=== PATIENT | female | born 1995 | race Caucasian/White ===

== ENCOUNTER → 2020-06-01 | Outpatient (CLI) | payer BC ==
--- NOTE | 2020-06-01 12:22 | RAD ---
CT LUMBAR SPINE WO Date: 06/01/2020 11:56 AM Indication: FALL, SEVERE LOW BACK PAIN Comparison: None. Technique: Helical CT images of the lumbar spine were obtained without contrast. Coronal and sagitta l reformatted images were also performed. One or more of the following dose reduction techniques were utilized: Automated exposure control (AEC), Adjustment of mA and/or kV according to patient size, Us e of iterative reconstruction technique such as ASiR, CT scan done according to ALARA and image gentl y/image wisely. Findings: Acute T12 compression deformity with 20 percent vertebral body height loss and fracture cleft along t he superior endplate. No osseous retropulsion. The lumbar spine is normally aligned. The intervertebral disc spaces are normal. No aggressive lytic or blastic osseous lesion. No high grade spinal canal stenosis or neuroforaminal narrowing. No soft tissue abnormality within the visualized abdomen or pelvis. The visualized abdominal aorta is normal caliber. IMPRESSION: Acute T12 compression deformity with 20 percent vertebral body height loss. No osseous retropulsion. . Electronically signed by: Sly Quinones MD (06/01/2020 12:20 PM) [id number]
== END ==
LOC: URGCARE 11:08
PROVIDERS: ATTEND Nurse Practitioner Family
DX: M43.8X4 Other specified deforming dorsopathies, thoracic region (principal)
CPT/HCPCS: 72131